=== PATIENT | female | born 1945 | race Caucasian/White ===

== ENCOUNTER → 2016-07-30 | Outpatient (REF) | payer MEDICARE, OTHER | LOC: M LABNEURO 12:41 | PROVIDERS: ATTEND Psychiatry & Neurology Neurology | DX: R51 Headache (principal) ==

== ENCOUNTER → 2016-08-25 | Outpatient (CLI) | payer MEDICARE, OTHER ==
[~2016-08-25] VITALS: Ht 167.6 cm; Wt 55.3 kg
[~2016-08-25] MED LIST: DEPA500T2 PO; HYZA50TA2 PO; LIDOCAINE 2% INJ 100 MG/5 ML SDV (FOR ANES.) As Ordered ONE; LOSA100T36 PO; MELO7.5T7 PO; MULT1TAB10 PO; NS 1,000 ML IV ONE; PROPOFOL 500 MG/50 ML VIAL As Ordered ONE; SIMV20TA2 PO; SYNT112T2 PO; [UNRECOGNIZED DRUG - CODE] PO
--- NOTE | 2016-08-25 10:34 | ROOR ---
Patient Name: Kerry Villanueva Procedure Date: 08/25/2016 8:46 AM Date of : 1945 Age: 71 [facility] Gender: Female Note Status: Finalized Procedure: Colonoscopy Indications: Screening for colorectal malignant neoplasm Providers: DO Rian Herrera MD: RAÚL MOISE MD Requesting Provider: Medicines: Propofol per Anesthesia Complications: No immediate complications. Procedure: Pre-Anesthesia Assessment: - Prior to the procedure, a History and Physical was performed, and patient medications and allergies were reviewed. The patient is competent. The risks and benefits of the procedure and the sedation options and risks were discussed with the patient. All questions were answered and informed consent was obtained. Patient identification and proposed procedure were verified by the physician, the nurse, the anesthesiologist and the epitaxial reactor technician in the endoscopy suite. Mental Status Examination: alert and oriented. Airway Examination: normal oropharyngeal airway and neck mobility. Respiratory Examination: clear to auscultation. CV Examination: normal. Prophylactic Antibiotics: The patient does not require prophylactic antibiotics. Prior Anticoagulants: The patient has taken no previous anticoagulant or antiplatelet agents. ASA Grade Assessment: II - A patient with mild systemic disease. After reviewing the risks and benefits, the patient was deemed in satisfactory condition to undergo the procedure. The anesthesia plan was to use monitored anesthesia care (MAC). Immediately prior to administration of medications, the patient was re-assessed for adequacy to receive sedatives. The heart rate, respiratory rate, oxygen saturations, blood pressure, adequacy of pulmonary ventilation, and response to care were monitored throughout the procedure. The physical status of the patient was re-assessed after the procedure. The Colonoscope was introduced through the anus and advanced to the cecum, identified by appendiceal orifice and ileocecal valve. The colonoscopy was performed without difficulty. The patient tolerated the procedure well. Findings: A less than 5 mm polyp was found in the sigmoid colon. The polyp was hyperplastic. The polyp was removed with a cold biopsy forceps. Resection and retrieval were complete. Estimated blood loss was minimal. Impression: - One less than 5 mm polyp in the sigmoid colon, removed with a cold biopsy forceps. Resected and retrieved. Recommendation: - Repeat colonoscopy in 5-10 years for surveillance based on pathology results. - Patient has a contact number available for emergencies. The signs and symptoms of potential delayed complications were discussed with the patient. Return to normal activities tomorrow. Written discharge instructions were provided to the patient. Johnathon Bhat DO 08/25/2016 10:34:09 AM This report has been signed electronically. Number of Addenda: 0 Note Initiated On: 08/25/2016 8:46 AM Estimated Blood Loss: Estimated blood loss: none.
[2016-08-25 10:56] VITALS: BP 126/80
== END | disposition home or self-care (01) ==
LOC: M OPP 08:37
PROVIDERS: ATTEND Surgery
DX: Z12.11 Encounter for screening for malignant neoplasm of colon (principal); D12.5 Benign neoplasm of sigmoid colon; I10 Essential (primary) hypertension; E78.5 Hyperlipidemia, unspecified; E03.9 Hypothyroidism, unspecified; E04.1 Nontoxic single thyroid nodule; M19.90 Unspecified osteoarthritis, unspecified site; M54.5 Low back pain; G43.909 Migraine, unspecified, not intractable, without status migrainosus; Z87.891 Personal history of nicotine dependence; Z79.899 Other long term (current) drug therapy

== ENCOUNTER → 2018-01-24 | Outpatient (CLI) | payer MEDICARE, OTHER | LOC: M RAD 09:00 | DX: Z12.2 Encounter for screening for malignant neoplasm of respiratory organs (principal); Z87.891 Personal history of nicotine dependence | CPT/HCPCS: G0297 ==

== ENCOUNTER → 2018-07-04 | Outpatient (CLI) | payer MEDICARE, OTHER ==
[~2018-07-04] MED LIST changes: -LIDOCAINE 2% INJ 100 MG/5 ML SDV (FOR ANES.) As Ordered ONE; -LOSA100T36 PO; +LOSA100T50 PO; -NS 1,000 ML IV ONE; -PROPOFOL 500 MG/50 ML VIAL As Ordered ONE
--- NOTE | 2018-07-04 12:44 | REP ---
CT CHEST WITHOUT IV CONTRAST: CT chest performed without IV contrast. Sagittal and coronal reconstruction images are performed. COMPARISON: 01/24/2018. 4 mm nodule is again seen in the left lower lobe inferolaterally unchanged since the prior exam. No new nodules are seen. Mild scattered fibrotic changes are noted. No consolidative infiltrate is seen. Accessory azygos lobe is seen superiorly on the right, a normal variant. There are mild atherosclerotic calcifications of the thoracic aorta with no aneurysm. No significant mediastinal or axillary adenopathy is seen. The heart is normal in size. There is no pleural or pericardial effusion. Visualized upper abdominal structures are grossly unremarkable. There are degenerative changes of the spine. IMPRESSION: Stable 4 mm nodule left lower lobe. According to revised Fleischner's Society criteria, 1-year followup CT is recommended. No new findings. Electronically Signed by Johnathon Brennan MD 07/05/2018 03:01 P
== END ==
LOC: M RAD 10:26
PROVIDERS: ATTEND Physician Assistant
DX: R91.1 Solitary pulmonary nodule (principal); F17.210 Nicotine dependence, cigarettes, uncomplicated

== ENCOUNTER 2018-08-07 19:44 | Emergency (ER) | payer MEDICARE, OTHER ==
[~2018-08-07] VITALS: Ht 167.6 cm; Wt 53.2 kg
[2018-08-07] MEDS ORDERED: diazePAM 10 MG TAB PO ONE (20:45)
[2018-08-07] MEDS ORDERED: KETOROLAC 30 MG/ML VIAL (J1885) IM ONE (20:45)
[2018-08-07] MEDS ORDERED: SOMA350T PO (21:29)
[2018-08-07 21:55] VITALS: BP 135/85
--- NOTE | 2018-08-07 22:52 | REPVR ---
EXAM: US Left Non-Vascular Joint or Other Extremity Structure, Limited Lower Extremity EXAM DATE/TIME: 08/07/2018 9:17 PM CLINICAL HISTORY: 73 years old, female; Pain; Hip; Left; Prior surgery; Surgery date: <1 month; Surgery type: Lipoma removed; Additional info: Pain at left hip surgical site TECHNIQUE: Imaging protocol: Left US Non-Vascular Joint or Other Extremity Structure. Limited exam of the lower extremity. COMPARISON: No relevant prior studies available. FINDINGS: Soft tissues: Scanning in the areas of interest demonstrates no specific abnormality. No mass or fluid collection. IMPRESSION: No specific sonographic abnormality is identified in the areas of interest. Electronically signed by: Dom Gusman On 08/07/2018 22:51:53 PM
== END 2018-08-07 21:58 | disposition home or self-care (01) ==
LOC: M ED 19:44
DX: M54.32 Sciatica, left side (principal); E07.9 Disorder of thyroid, unspecified; Z79.899 Other long term (current) drug therapy; Z79.890 Hormone replacement therapy
CPT/HCPCS: 76882; 96372; 99283; J1885

== ENCOUNTER → 2020-05-13 | Outpatient (CLI) | payer MEDICARE, OTHER ==
[~2020-05-13] MED LIST changes: -SIMV20TA2 PO; +SIMV20TA22 PO; +SOMA350T PO
[2020-05-13 11:49] LABS: BLOOD UREA NITROGEN 19 MG/DL (7-18); CARBON DIOXIDE LEVEL 31 MEQ/L (21-32); CHLORIDE LEVEL 105 MEQ/L (98-107); CREATININE FOR GFR 0.93 MG/DL (0.55-1.30); GLOMERULAR FILTRATION RATE > 60.0 (>39); GLUCOSE, FASTING 102 MG/DL (70-100); POTASSIUM SERUM 3.8 MEQ/L (3.5-5.1); SODIUM LEVEL 143 MEQ/L (136-145)
== END ==
LOC: M LAB 10:17
PROVIDERS: ATTEND Physician Assistant
DX: Z01.818 Encounter for other preprocedural examination (principal)

== ENCOUNTER → 2020-05-20 | Outpatient (CLI) | payer MEDICARE, OTHER ==
[~2020-05-20] MED LIST changes: +PROHANCE 279.3MG/ML 15ML VIAL As Ordered ONE
--- NOTE | 2020-05-20 18:18 | REP ---
INDICATION: DENSE BREASTS.ENCTR SCREEN MAMMO FOR MALIGNANT NEOPLASM OF B. COMPARISON: Mammogram 10/19/2019 as well as other prior exams. TECHNIQUE: Three Natalie MRI imaging was performed with a dedicated breast coil. Axial, coronal, and sagittal T1 and T2 weighted scans were obtained with and without fat saturation in the usual fashion. The study includes dynamically acquired post gadolinium-enhanced imaging with image subtraction. Maximum intensity projection and multi planar reformation imaging is included as well. This study is interpreted with the aid of [employer], an FDA approved computer aided detection (CAD) software program, on a dedicated breast MRI workstation. The gadolinium enhancement dose is 9 mL of intravenous ProHance. FINDINGS: There is moderate fibroglandular tissue bilaterally. No significant cystic changes seen. There is no evidence of axillary adenopathy. There is minor scattered bilateral background parenchymal enhancement. There is no suspicious enhancing mass or morphologic abnormality. IMPRESSION: BI-RADS category 1, negative bilateral breast MRI. No suspicious enhancing mass or morphologic abnormality. <Electronically signed by Johnathon Brennan > 05/20/20 [id number]
== END ==
LOC: M RAD 10:27
PROVIDERS: ATTEND Physician Assistant
DX: R92.2 Inconclusive mammogram (principal)
CPT/HCPCS: A9576; C8908

== ENCOUNTER → 2020-06-05 | Outpatient (CLI) | payer MEDICARE, OTHER ==
[~2020-06-05] MED LIST changes: -PROHANCE 279.3MG/ML 15ML VIAL As Ordered ONE
--- NOTE | 2020-06-05 10:50 | DEXAMM ---
INDICATION: M85.80 [facility] DISRD OF BONE DENSITY AND STRUCTURE. COMPARISON: None. TECHNIQUE: Bone density was measured using dual-energy x-ray absorptiometry (DEXA). FINDINGS: AP SPINE L1-L4 BMD 1.485 g/cm2 Young Adult T-Score 2.3 Age Matched Z-Score 4.1. LT FEMUR, TOTAL BMD 0.872 g/cm2 Young Adult T-Score -1.1 Age Matched Z-Score 0.6. LT NECK BMD 1.055 g/cm2 Young Adult T-Score 0.1 Age Matched Z-Score 2.0. RT FEMUR, TOTAL BMD 0.825 g/cm2 Young Adult T-Score -1.5 Age Matched Z-Score 0.2. RT NECK BMD 0.948 g/cm2 Young Adult T-Score -0.6 Age Matched Z-Score 1.2. IMPRESSION: There is normal bone density of the spine. There is normal bone density of the left hip. There is normal bone density of the right hip. FOLLOW-UP: Recommendation for the next bone density exam: 5 years. <Electronically signed by Johnathon Brennan > 06/05/20 [id number]
== END ==
LOC: M WHC 08:19
PROVIDERS: ATTEND Physician Assistant
DX: M85.80 Other specified disorders of bone density and structure, unspecified site (principal)

== ENCOUNTER → 2020-10-10 | Outpatient (CLI) | payer MEDICARE, OTHER ==
--- NOTE | 2020-10-10 13:59 | REP ---
INDICATION: SOLITARY PULMONARY NODULE. COMPARISON: Chest CT dated 01/24/[address] dated 07/04/2018. TECHNIQUE: Chest CT without IV contrast. FINDINGS: There is a 4 mm left lower lobe lung nodule, unchanged from both prior studies on image 90. There are no other lung masses or nodules. There is curvilinear scarring in the left lower lobe, unchanged. There are no infiltrates or pleural effusions. There is a small Bochdalek's hernia in the deep posterior sulcus of the left lower lobe as a congenital variant, unchanged. 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 There is no mediastinal or axillary lymphadenopathy. In the absence of IV contrast the study is insensitive for hilar adenopathy. The thoracic aorta is unremarkable except for occasional calcified atheroma. Is a focal calcific plaque at the origin of the right carotid artery, unchanged from the prior studies.. Cardiac size is normal. There is no pericardial effusion. The visualized upper abdominal contents are unremarkable. IMPRESSION: The known 4 mm left lower lobe lung nodule is stable and unchanged. This converts this nodule to a category 2 nodule, with the possibility of malignancy less than 1%. There are other chronic stable findings as described. <Electronically signed by Johnathon Israel > 10/10/20 [id number]
== END ==
LOC: M RAD 13:10
PROVIDERS: ATTEND Physician Assistant
DX: R91.1 Solitary pulmonary nodule (principal)

== ENCOUNTER → 2020-10-23 | Outpatient (CLI) | payer MEDICARE, OTHER ==
--- NOTE | 2020-10-23 15:02 | REPMRS ---
Patient History The patient states she has not had a clinical breast exam in over a year. Family history of unknown cancer in maternal aunt, unknown cancer in maternal aunt. Patient states she has lost at least 10lbs since her last mammo No breast complaints today Patient signed the MRS sheet 1st covid vaccine 04/02/20-right arm-Pfizer 2nd covid vaccine 04/23/20-right arm Priors were done @ [facility] PACS Patient Identification Verified Digital Woman Screen Mammo: October 23, 2020 - Exam #: [id number] Bilateral CC and MLO view(s) were taken. Technologist: Ros Michelle, Technologist Prior study comparison: November 01, 2019, bilateral digital mammo screening bilat, performed at [facility]. October 19, 2019, bilateral digital mammo screening bilat, performed at [facility]. July 03, 2018, left breast diagnostic unilateral mammo, performed at [facility]. December 26, 2017, bilateral digital mammo screening bilat, performed at [facility]. FINDINGS: The breast tissue is extremely dense which could obscure a lesion on mammography. The [employer]para volumetric breast density category is: D. There is an extremely dense symmetrical pattern of residual fibroglandular tissue. There has been no change in the appearance of the mammogram from the previous studies. There is no interval development of dominant mass, archetectural distortion, or grouped microcalcifications suggestive of malignancy. 3-D tomosynthesis shows no additional findings. Assessment: BI-RADS/ACR category 1 mammogram. Negative Mammogram. Recommendation Routine screening mammogram of both breasts in 1 year (for women over age 40). This patient's [facility] Lifetime Breast Cancer RIsk is estimated at 3.6 %. This mammogram was interpreted with the aid of an FDA-approved computer-aided dectection system. Electronically Signed By: Blaze Muñoz MD 10/23/20 [id number]
== END ==
LOC: M WHC 13:52
PROVIDERS: ATTEND Physician Assistant
DX: Z12.31 Encounter for screening mammogram for malignant neoplasm of breast (principal); Z80.9 Family history of malignant neoplasm, unspecified

== ENCOUNTER → 2022-04-21 | Outpatient (CLI) | payer MEDICARE, OTHER ==
[~2022-04-21] MED LIST changes: +E-Z-GAS II EFFERVESCENT PACKET (SODIUM BICARB./CITRIC ACID/SIMETHICONE) As Ordered ONE; +E-Z-HD 98% w/w 340GM SUSP BTL As Ordered ONE; +E-Z-PAQUE 96% w/w SUSP 176GM BTL As Ordered ONE; -HYZA50TA2 PO; +LOSA-532 PO; +LOSA100T45 PO; -LOSA100T50 PO
== END ==
LOC: M RAD 10:13
PROVIDERS: ATTEND Internal Medicine Gastroenterology
DX: R13.10 Dysphagia, unspecified (principal); K21.9 Gastro-esophageal reflux disease without esophagitis

== ENCOUNTER → 2022-05-10 | Outpatient (CLI) | payer MEDICARE, OTHER ==
[~2022-05-10] MED LIST changes: +ACET-910 PO; -E-Z-GAS II EFFERVESCENT PACKET (SODIUM BICARB./CITRIC ACID/SIMETHICONE) As Ordered ONE; -E-Z-HD 98% w/w 340GM SUSP BTL As Ordered ONE; -E-Z-PAQUE 96% w/w SUSP 176GM BTL As Ordered ONE
== END ==
LOC: M LABSMTC 10:46
PROVIDERS: ATTEND Anesthesiology
DX: Z01.812 Encounter for preprocedural laboratory examination (principal); Z11.52 Encounter for screening for COVID-19

== ENCOUNTER 2022-05-13 11:40 | Day surgery (SDC) | payer MEDICARE, OTHER ==
[~2022-05-13] VITALS: Ht 166.4 cm; Wt 45.4 kg
[~2022-05-13 11:40] MED LIST changes: +LIDOCAINE 2% 100MG/5ML SDV (FOR ANES.) As Ordered ONE; +NS 1,000 ML IV ONE; +propofoL 200 MG/20 ML VIAL As Ordered ONE
[2022-05-13 14:30] VITALS: BP 136/81
== END 2022-05-13 15:05 | disposition home or self-care (01) ==
LOC: M OPP 11:40
PROVIDERS: ATTEND Internal Medicine Gastroenterology
DX: K21.00 Gastro-esophageal reflux disease with esophagitis, without bleeding (principal); K25.9 Gastric ulcer, unspecified as acute or chronic, without hemorrhage or perforation; K22.89 Other specified disease of esophagus; I10 Essential (primary) hypertension; E78.00 Pure hypercholesterolemia, unspecified; E03.9 Hypothyroidism, unspecified; Z86.39 Personal history of other endocrine, nutritional and metabolic disease; Z90.89 Acquired absence of other organs; Z79.02 Long term (current) use of antithrombotics/antiplatelets; Z79.1 Long term (current) use of non-steroidal anti-inflammatories (NSAID); Z79.890 Hormone replacement therapy; Z79.899 Other long term (current) drug therapy

== ENCOUNTER 2022-11-10 07:33 | Day surgery (SDC) | payer MEDICARE, OTHER ==
[~2022-11-10] VITALS: Ht 165.1 cm; Wt 45.7 kg
[~2022-11-10 07:33] MED LIST changes: -LIDOCAINE 2% 100MG/5ML SDV (FOR ANES.) As Ordered ONE; -LOSA100T45 PO; +LOSA100T46 PO; -propofoL 200 MG/20 ML VIAL As Ordered ONE
[2022-11-10 09:14] VITALS: TEMP 97.5
[2022-11-10 09:37] VITALS: BP 134/83; O2SAT 98
== END 2022-11-10 09:50 | disposition home or self-care (01) ==
LOC: M OPP 07:33
PROVIDERS: ATTEND Surgery
DX: Z12.11 Encounter for screening for malignant neoplasm of colon (principal); K57.30 Diverticulosis of large intestine without perforation or abscess without bleeding; K64.0 First degree hemorrhoids; I10 Essential (primary) hypertension; E78.5 Hyperlipidemia, unspecified; E03.9 Hypothyroidism, unspecified; M19.90 Unspecified osteoarthritis, unspecified site; G43.909 Migraine, unspecified, not intractable, without status migrainosus; F32.A Depression, unspecified; F41.9 Anxiety disorder, unspecified; Z79.890 Hormone replacement therapy; Z79.899 Other long term (current) drug therapy